=== PATIENT | male | born 1980 | race African-American/Black ===

== ENCOUNTER 2017-05-02 19:15 | Emergency (ER) | payer SELFPAY ==
[~2017-05-02] VITALS: Ht 185.4 cm; Wt 90.7 kg
--- NOTE | 2017-05-02 19:15 | NUR ---
PT BIB [facility], PREBOOK. TAKEN TO [facility]
[2017-05-02 19:19] VITALS: BP 152/113
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
--- NOTE | 2017-05-02 19:20 | NUR ---
Patient being evaluated by DR. LOWE at bedside.
[2017-05-02 19:59] VITALS: BP 150/85
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
--- NOTE | 2017-05-02 19:59 | NUR ---
Patient discharged with v/s stable. Written and verbal after care instructions given and explained. Patient verbalized understanding. Ambulatory with steady gait. All questions addressed prior to discharge. Advised to follow up with PMD.
== END 2017-05-02 19:59 ==
LOC: MED 19:15
DX: Z02.89 Encounter for other administrative examinations (principal); I10 Essential (primary) hypertension; V43.52XA Car driver injured in collision with other type car in traffic accident, initial encounter; Y93.89 Activity, other specified; Y92.488 Other paved roadways as the place of occurrence of the external cause; Y99.8 Other external cause status
CPT/HCPCS: 71010; 99283